=== PATIENT | female | born 1960 | race Hispanic/Latino ===

== ENCOUNTER → 2017-11-11 | Outpatient (CLI) | payer OTHER ==
[~2017-11-11] MED LIST: ADVAIR HFA 115-12 GM; CETIRIZINE HCL10 MG PO; CETRIZINE PO; FUROSEMIDE40 MG PO; GABAPENTIN300 MG PO; GLIPIZIDE ER5 MG PO; HYDROCHLOROTHIA25 MG PO; LANTUS100 UNITS/ SC; LOSARTAN POTAS100 MG PO; METFORMIN HCL500 M1 PO; PANTOPRAZOLE SO40 MG PO; PRAVASTATIN SOD20 MG PO; PRO AIR PO; TAGAMET HB200 MG PO
--- NOTE | 2017-11-11 10:02 | Diagnostic Imaging Report ---
PROCEDURE:ABDOMINAL ULTRASOUND COMPARISON:None. INDICATION:Diffuse Abdomen Pain TECHNIQUE: FINDINGS: Imaged segments of the abdominal aorta and inferior vena cava are of normal caliber. Normal pancreatic head and body. Detail is obscured by bowel gas. Right liver span 14.7 cm. Diffusely increased parenchymal echogenicity with a smooth margin. Portal vein diameter 7 mm; normal flow direction. Cholecystectomy. Common bile duct diameter 3 mm. Right kidney: 11.7 x 4.7 x 4.8 cm. Left kidney: 10.5 x 4.2 x 6.3 cm Both kidneys are normal. Spleen length 12 cm. Coarse central calcification such as a large granuloma or vascular calcification, likely of no clinical consequence. No ascites. CONCLUSION: Normal abdominal ultrasound. Dictated by: Narciso Sweeney M.D. on 11/11/2017 at 10:11 Electronically approved by: Narciso Sweeney M.D. on 11/11/2017 at 10:11
--- NOTE | 2017-11-11 10:05 | Diagnostic Imaging Report ---
PROCEDURE:PELVIC ULTRASOUND COMPARISON:None. INDICATIONS:Diffuse Abdomen Pain TECHNIQUE: Rubi scale color Doppler transabdominal ultrasound pelvis. FINDINGS: The patient is status post hysterectomy. The ovaries are not conspicuous. There is no free fluid rather conspicuous abnormality on survey views. CONCLUSION: Inconspicuous ovaries with hysterectomy. No acute abnormality. Dictated by: Narciso Sweeney M.D. on 11/11/2017 at 10:14 Electronically approved by: Narciso Sweeney M.D. on 11/11/2017 at 10:14
== END ==
LOC: US 07:34
PROVIDERS: ATTEND Internal Medicine Gastroenterology
DX: R10.84 Generalized abdominal pain (principal)
CPT/HCPCS: 76700; 76856

== ENCOUNTER 2018-08-23 19:36 | Emergency (ER) | payer OTHER ==
[~2018-08-23] VITALS: Ht 162.6 cm; Wt 95.3 kg
--- OUTSIDE RECORDS SUMMARY | 2018-08-23 19:39 | XMS REPORT ---
Author Author [facility] Address Unknown Phone Unavailable Care Team Providers Care Secondary Social Studies Teacher Name Role Phone Kirk DESAI Unavailable Unavailable SHAHNAZ LIEBERMAN Unavailable Unavailable FLAVIO COLBY Unavailable Unavailable Problems This patient has no known problems. Allergies, Adverse Reactions, Alerts This patient has no known allergies or adverse reactions. Medications This patient has no known medications. Results Test Description Test Time Test Comments Text Results Atomic Results Result Comments POCT-GLUCOSE METER 2018-08-14 16:17:00 POC-GLUCOSE METER (BEAKER) (test svhh=1115) 85 mg/dL 70-110 TESTED AT [address] [address] POCT-GLUCOSE [id number] 13:03:00* Test Item Value Reference Range Comments POC-GLUCOSE METER (BEAKER) (test ervj=9904) 231 mg/dL 70-110 TESTED AT [address] [address] POCT-GLUCOSE [id number] 09:13:00* Test Item Value Reference Range Comments POC-GLUCOSE METER (BEAKER) (test lyuz=1273) 195 mg/dL 70-110 TESTED AT [address] [address] [id number] 07:19:00* Test Item Value Reference Range Comments PHOSPHORUS (BEAKER) (test fhkc=606) 1.9 mg/dL 2.3-4.7 [id number] 07:19:00* Test Item Value Reference Range Comments MAGNESIUM (BEAKER) (test ulsp=423) 1.7 mg/dL 1.6-2.6 BASIC METABOLIC [id number] 07:19:00* Test Item Value Reference Range Comments SODIUM (BEAKER) (test vlbw=092) 136 meq/L 136-145 POTASSIUM (BEAKER) (test zbwv=848) 3.3 meq/L 3.5-5.1 CHLORIDE (BEAKER) (test xdwx=796) 105 meq/L 98-107 CO2 (BEAKER) (test uich=608) 23 meq/L 22-29 BLOOD UREA NITROGEN (BEAKER) (test syhn=621) 13 mg/dL 7-21 CREATININE (BEAKER) (test ouab=560) 0.84 mg/dL 0.57-1.25 GLUCOSE RANDOM (BEAKER) (test llny=137) 179 mg/dL 70-105 CALCIUM (BEAKER) (test gkro=734) 8.9 mg/dL 8.4-10.2 EGFR (BEAKER) (test zqxy=4859) 70 mL/min/1.73 sq m ESTIMATED GFR IS NOT ACCURATE CREATININE CLEARANCE IN PREDICTING GLOMERULAR FILTRATION RATE. ESTIMATED GFR IS NOT APPLICABLE FOR DIALYSIS PATIENTS. CBC (HEMOGRAM ONLY)2018-08-14 06:31:00* Test Item Value Reference Range Comments WHITE BLOOD CELL COUNT (BEAKER) (test uwjh=754) 9.3 K/ L 3.5-10.5 RED BLOOD CELL COUNT (BEAKER) (test zlwk=488) 4.07 M/ L 3.93-5.22 HEMOGLOBIN (BEAKER) (test zoyj=670) 10.7 GM/DL 11.2-15.7 HEMATOCRIT (BEAKER) (test rcey=250) 32.9 % 34.1-44.9 MEAN CORPUSCULAR VOLUME (BEAKER) (test bwdg=056) 80.8 fL 79.4-94.8 MEAN CORPUSCULAR HEMOGLOBIN (BEAKER) (test aegv=922) 26.3 pg 25.6-32.2 MEAN CORPUSCULAR HEMOGLOBIN CONC (BEAKER) (test kdhm=189) 32.5 GM/DL 32.2-35.5 RED CELL DISTRIBUTION WIDTH (BEAKER) (test mloh=383) 13.8 % 11.7-14.4 PLATELET COUNT (BEAKER) (test wvsu=730) 222 K/CU MM 150-450 MEAN PLATELET VOLUME (BEAKER) (test gqrr=916) 10.7 fL 9.4-12.3 NUCLEATED RED BLOOD CELLS (BEAKER) (test zbgb=044) 0 /100 WBC 0-0 POCT-GLUCOSE [id number] 21:37:00* Test Item Value Reference Range Comments POC-GLUCOSE METER (BEAKER) (test kysr=4386) 223 mg/dL 70-110 TESTED AT [facility] [address] [facility] [address] POCT-GLUCOSE [id number] 16:02:00* Test Item Value Reference Range Comments POC-GLUCOSE METER (BEAKER) (test ygnl=0398) 312 mg/dL 70-110 TESTED AT [facility] [address] [facility] [address] POCT-GLUCOSE [id number] 12:04:00* Test Item Value Reference Range Comments POC-GLUCOSE METER (BEAKER) (test lfbo=9415) 359 mg/dL 70-110 TESTED AT [place] [id number] [facility] [address] POCT-GLUCOSE [id number] 09:00:00* Test Item Value Reference Range Comments POC-GLUCOSE METER (BEAKER) (test iwbl=3435) 279 mg/dL 70-110 TESTED AT [place] [id number] [facility] [address] [id number] 05:00:00* Test Item Value Reference Range Comments PHOSPHORUS (BEAKER) (test sgoq=943) 2.9 mg/dL 2.3-4.7 [id number] 05:00:00* Test Item Value Reference Range Comments MAGNESIUM (BEAKER) (test bmrx=905) 1.7 mg/dL 1.6-2.6 BASIC METABOLIC [id number] 05:00:00* Test Item Value Reference Range Comments SODIUM (BEAKER) (test ocgv=594) 141 meq/L 136-145 POTASSIUM (BEAKER) (test hxsd=056) 3.7 meq/L 3.5-5.1 CHLORIDE (BEAKER) (test qbbb=610) 107 meq/L 98-107 CO2 (BEAKER) (test ybtx=296) 23 meq/L 22-29 BLOOD UREA NITROGEN (BEAKER) (test jjkb=759) 12 mg/dL 7-21 CREATININE (BEAKER) (test kfyt=356) 0.84 mg/dL 0.57-1.25 GLUCOSE RANDOM (BEAKER) (test uemk=118) 245 mg/dL 70-105 CALCIUM (BEAKER) (test ttec=652) 8.5 mg/dL 8.4-10.2 EGFR (BEAKER) (test ffgx=7232) 70 mL/min/1.73 sq m ESTIMATED GFR IS NOT ACCURATE CREATININE CLEARANCE IN PREDICTING GLOMERULAR FILTRATION RATE. ESTIMATED GFR IS NOT APPLICABLE FOR DIALYSIS PATIENTS. CBC (HEMOGRAM ONLY)2018-08-13 04:30:00* Test Item Value Reference Range Comments WHITE BLOOD CELL COUNT (BEAKER) (test yqqa=761) 12.5 K/ L 3.5-10.5 RED BLOOD CELL COUNT (BEAKER) (test vocw=127) 4.94 M/ L 3.93-5.22 HEMOGLOBIN (BEAKER) (test bzop=407) 12.7 GM/DL 11.2-15.7 HEMATOCRIT (BEAKER) (test hzft=377) 39.6 % 34.1-44.9 MEAN CORPUSCULAR VOLUME (BEAKER) (test dsqz=034) 80.2 fL 79.4-94.8 MEAN CORPUSCULAR HEMOGLOBIN (BEAKER) (test wqum=699) 25.7 pg 25.6-32.2 MEAN CORPUSCULAR HEMOGLOBIN CONC (BEAKER) (test sypz=095) 32.1 GM/DL 32.2-35.5 RED CELL DISTRIBUTION WIDTH (BEAKER) (test disf=093) 13.2 % 11.7-14.4 PLATELET COUNT (BEAKER) (test zakh=500) 269 K/CU MM 150-450 MEAN PLATELET VOLUME (BEAKER) (test xxsj=176) 10.6 fL 9.4-12.3 NUCLEATED RED BLOOD CELLS (BEAKER) (test lpbl=752) 0 /100 WBC 0-0 POCT-GLUCOSE [id number] 22:07:00* Test Item Value Reference Range Comments POC-GLUCOSE METER (BEAKER) (test jrzt=5863) 178 mg/dL 70-110 TESTED AT [facility] [address] [facility] [address] POCT-GLUCOSE [id number] 13:34:00* Test Item Value Reference Range Comments POC-GLUCOSE METER (BEAKER) (test aevf=5305) 233 mg/dL 70-110 TESTED AT [facility] [address] [facility] [address] [id number] 12:19:00* Test Item Value Reference Range Comments SODIUM (BEAKER) (test ttfu=233) 144 meq/L 136-145 POTASSIUM (BEAKER) (test onye=099) 3.4 meq/L 3.5-5.1 CHLORIDE (BEAKER) (test pppx=694) 106 meq/L 98-107 CO2 (BEAKER) (test qlrm=621) 28 meq/L 22-29 [id number] 12:19:00* Test Item Value Reference Range Comments GLUCOSE RANDOM (BEAKER) (test uvio=917) 171 mg/dL 70-105 BUN AND [id number] 12:19:00* Test Item Value Reference Range Comments BLOOD UREA NITROGEN (BEAKER) (test hwir=436) 17 mg/dL 7-21 CREATININE (BEAKER) (test qawm=225) 1.09 mg/dL 0.57-1.25 EGFR (BEAKER) (test ritv=6618) 52 mL/min/1.73 sq m ESTIMATED GFR IS NOT ACCURATE CREATININE CLEARANCE IN PREDICTING GLOMERULAR FILTRATION RATE. ESTIMATED GFR IS NOT APPLICABLE FOR DIALYSIS PATIENTS. [id number] 11:43:00* Test Item Value Reference Range Comments HEMOGLOBIN (BEAKER) (test fqkg=302) 12.9 GM/DL 11.2-15.7 TISSUE [id number] 12:31:00Surgical Pathology Report Case: [id number] Authorizing Provider: Deandre Lieberman Collected: 03/25/2018 Chuck Gonzales MD Ordering Location: [facility] Received: 03/25/2018 1527 SERVICES Pathologist: Lisa Campbell MD Specimens: A) - Small Bowel, NOS, bx B) - Stomach, bx C) - Biopsy, Gastroesophageal Junction, GE Junction at 40 r\\o esophagitis REASON FOR ADENDUM: TO ENTER CPT CODES:PB: 70201 x 3, 88260 x 2Addendum electronically signed by Lisa Carroll MD on 05/28/2018 at 12:31 PMA. SMALL BOWEL, BIOPSIES: - INCREASED CHRONIC INFLAMMATORY CELLS IN THE LAMINA PROPRIA B. STOMACH, BIOPSIES: - INTESTINAL METAPLASIA - CHRONIC INACTIVE GASTRITIS C. GE JUNCTION, BIOPSIES: - REFLUX ESOPHAGITIS - REACTIVE CARDITIS Signing Pathologist Direct Phone Line: [phone] signed by Lisa Carroll MD on 03/26/2018 at 3:25 PMGastroesophageal reflux disease with esophagitis, rule out esophagitis A. Small bowel biopsy; B. Stomach biopsy; C. GE junction at 40 cm biopsyThe specimen is received in three containers of formalin all labeled with the patient's information. Part A labeled "small bowel biopsy" consists of two fragments of otero tissue measuring 0.1 and 0.2 cm, submitted A1. Part B labeled "stomach biopsy" consists of multiple fragments of otero tissue ranging from 0.1 to 0.3 cm, submitted B1. Part C labeled "GE junction biopsy of 40 cm" consists of two 0.1 cm fragment of otero tissue, submitted C1.CG/pl A. Biopsies of small bowel have small bowel mucosa with mild increased chronic inflammatory cells in the lamina propria. No decreased villous to crypt ratio, increased intraepit helial lymphocytes, dysplasia or malignancy is seen.B. Stomach biopsies have int estinal metaplasia and increased chronic inflammatory cells in the lamina propri a. No Helicobacter pylori are seen on H&E or Warthin Starry stains. No dysplasia or malignancy is seen.C. GE junction biopsies have gastric cardiac mucosa with scant esophageal squamous epithelium with basal cell hyperplasia and intraepithelial lymphocytes. No fungi, viral cytopathic effect, Contreras's intestinal metaplasia, dysplasia or malignancy is seen.POCT-GLUCOSE METER 2018-03-25 11:01:00* Test Item Value Reference Range Comments POC-GLUCOSE METER (ELLE) (test soti=3601) 152 mg/dL 70-110 TESTED AT [facility] [address] [facility] [address] US ABDOMEN COMPLETE [place] [address] Patient Name: MISTY HOU MR #: [id number] : 1960 Age/Sex: 57/F Req #: [id number] Adm Physician: Ordered by: FLAVIO COLBY MD Report #: [id number] Location: US Room/Bed: Procedure: [id number] US/US ABDOMEN COMPLETE Exam D ate: Exam Time: REPORT STATUS: Signed PROC EDURE: ABDOMINAL ULTRASOUND COMPARISON: None. INDICATION: Diffuse Abdo men Pain TECHNIQUE: FINDINGS: Imaged segments of the abdominal a steffen and inferior vena cava are of normal caliber. Normal pancreatic he ad and body. Detail is obscured by bowel gas. Right liver span 14.7 cm. Di ffusely increased parenchymal echogenicity with a smooth margin. Portal vein diameter 7 mm; normal flow direction. Cholecystectomy. Common bile duct di ameter 3 mm. Right kidney: 11.7 x 4.7 x 4.8 cm. Left kidney: 10.5 x 4.2 x 6.3 cm Both kidneys are normal. Spleen length 12 cm. Coarse central ca lcification such as a large granuloma or vascular calcification, likely of no clinical consequence. No ascites. CONCLUSION: Normal abdominal ultrasound. Dictated by: Janessa Sweeney M.D. on 018 at 10:11 Electronically approved by: Janessa Sweeney M.D. on 10/27 at 10:11 Dictated By: JANESSA SWEENEY MD 1011 Transcribed By: CHERYLE on 11/11/17 1011 COPY TO: FLAVIO COLBY MD US PELVIS COMPLETE NON OB [place] [address] Patient Name: MISTY HOU MR #: [id number] : 1960 Age/Sex: 57/F Req #: [id number] Adm Physician: Ordered by: FLAVIO COLBY MD Report #: [id number] Location: US Room/Bed: Procedure: [id number] US/US PELVIS COMPLETE NON OB Exam Date: Exam Time: REPORT STATUS: Signed PROCEDURE: PELVIC ULTRASOUND COMPARISON: None. INDICATIONS: Diffuse Abdomen Pain TECHNIQUE: Rubi scale color Doppler transabdominal ultrasound pelvis. FINDINGS: The patient is status post hysterectomy. The ovaries are not conspicuous. There is no free fluid rather conspicuous abnorm ality on survey views. CONCLUSION: Inconspicuous ovaries with hystere ctomy. No acute abnormality. Dictated by: Janessa Sweeney M.D. on 11/11/2017 at 10:14 Electronically approved by: Janessa Sweeney M.D. on 11/11/2017 at 10:14 Dictated By: JANESSA SWEENEY MD Electro nically Signed By: JANESSA SWEENEY MD on 11/11/17 1014 Transcribed By: CHERYLE on 11/11/17 1014 COPY TO: FLAVIO COLBY MD
--- OUTSIDE RECORDS SUMMARY | 2018-08-23 19:39 | XMS REPORT | Clinical Summary ---
Author Author [employer] [facility] [employer] 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 Active insulin glargine Inject 58 0 (BASAGLAR KWIKPEN) 100 Units unit/mL (3 mL) InPn subcutaneousl y nightly . Active cholecalciferol, vitamin Take 3,000 0 D3, 3,000 unit Tab Units by mouth daily. Active empagliflozin (JARDIANCE) Take 10 mg by 0 10 mg tablet mouth daily. Active loratadine (CLARITIN) 10 Take 10 mg by 0 mg tablet mouth daily. Active metoprolol (LOPRESSOR) 25 Take 25 mg by 0 MG tablet mouth 2 (two) times daily. Active insulin aspart (NOVOLOG) Inject 15 0 100 unit/mL InPn Units subcutaneousl y 3 (three) times daily before meals . Active peg 400-propylene glycol, Place 1 drop 0 PF, (SYSTANE, PF,) inside cheek 0.4-0.3 % Dpet as needed . Active pravastatin (PRAVACHOL) Take 20 mg by 0 20 MG tablet mouth daily. Active albuterol HFA (VENTOLIN Inhale 1 puff 0 HFA) 90 mcg/actuation by mouth via inhaler inhaler every 6 (six) hours as needed for Wheezing. Active lactobacillus rhamnosus, Take 1 0 GG, (CULTURELLE) 10 capsule by billion cell capsule mouth daily. Active pantoprazole (PROTONIX) Take 40 mg by 0 40 MG tablet mouth daily. Active pregabalin (LYRICA) 75 MG Take 75 mg by 0 capsule mouth 2 (two) times daily. Active furosemide (LASIX) 20 MG Take 20 mg by 0 tablet mouth daily. Active vitamin Take 1 tablet 0 w/vgikuek-dvof-jtyexs by mouth ( PLUS) 27 mg daily. iron- 1 mg Tab 08/24/2018 Active traMADol (ULTRAM) 50 mg Take 1 tablet 30 tablet 0 tablet (50 mg total) 8 by mouth every 6 (six) hours as needed for Pain for up to 10 days. Max Daily Amount: 200 mg 08/24/2018 Active docusate sodium (COLACE) Take 1 30 capsule 0 100 MG capsule capsule (100 8 mg total) by mouth daily as needed for up to 10 days. 12/22/2017 Discontinued fluticasone (FLONASE) 50 1 spray by 0 mcg/actuation nasal spray Nasal route daily. 12/22/2017 Discontinued furosemide (LASIX) 20 MG Take 20 mg by 0 tablet mouth 2 (two) times daily. 07/13/2018 Discontinued gabapentin (NEURONTIN) Take 300 mg 0 300 MG capsule by mouth daily . 07/13/2018 Discontinued garlic 300 mg Cap Take 1 0 capsule by mouth daily . 12/22/2017 Discontinued glipiZIDE (GLUCOTROL) 10 Take 10 mg by 0 MG tablet mouth 2 (two) times daily before meals. 12/22/2017 Discontinued SITagliptin (JANUVIA) 100 Take 100 mg 0 MG tablet by mouth daily. 03/25/2018 Discontinued pantoprazole (PROTONIX) Take 40 mg by 0 40 MG tablet mouth daily. 07/13/2018 Discontinued dextromethorphan-guaifene Take 5 mLs by 0 sin (ROBITUSSIN-DM) mouth every 6 10-100 mg/5 mL liquid (six) hours as needed. 07/13/2018 Discontinued cephalexin (KEFLEX) 500 Take 500 mg 0 MG capsule by mouth 3 (three) times daily. Active Problems Problem Noted Date Hiatal hernia 08/12/2018 Encounters Care Team Description Date Type Specialty Gerardo Angelo MD ROBOTIC LAPAROSCOPY,HERNIORRHAPHY HIATAL 08/12/2018 Surgery Gerardo Angelo MD 08/12/2018 Hospital General Internal Medicine - Encounter 08/14/2018 Primitivo Andersen MD 08/11/2018 Anesthesia Event Gerardo Angelo MD 08/06/2018 Hospital Pre-Admission Testing Encounter Mejia Hassan MD 07/28/2018 Anesthesia Event Gerardo Angelo MD 07/13/2018 Hospital Pre-Admission Testing Encounter Gerardo Angelo MD Left without seen 05/18/2018 Office Visit Nutrition Gerardo Angelo MD Gastroesophageal reflux disease, esophagitis presence not specified (Primary Dx); Morbid obesity (HCC) 05/15/2018 Outside Orders Central Scheduling Deandre Arriaga MD UPPER ENDOSCOPY 03/25/2018 Surgery Deandre Arriaga MD 03/25/2018 Hospital Encounter Francois Rubalcava MD 03/25/2018 Anesthesia Event 03/18/2018 Hospital Pre-Admission Testing Encounter Deandre Arriaga MD REMOVAL,24HR PH PROBE 12/23/2017 Surgery Gastroenterology Deandre Arriaga MD 12/23/2017 Hospital Gastroenterology Encounter Deandre Arriaga MD TEST,MONITORING 24 HR PH 12/22/2017 Surgery Gastroenterology Deandre Arriaga MD 12/22/2017 Hospital Gastroenterology Encounter after 08/22/2017 Immunizations Name Dates Previously Given Next Due Influenza Four-QIV Non-PF 08/14/2018 5+ YR Social History Date Tobacco Use Types Packs/Day Years Used Never Smoker Smokeless Tobacco: Never Used Alcohol Use Drinks/Week oz/Week Comments No Sex Assigned at Date Recorded Not on file Industry Job Start Date Occupation Not on file Not on file Not on file Travel End Travel History Travel Start No recent travel history available. Last Filed Vital Signs Time Taken Vital Sign Reading 08/14/2018 7:00 PM CDT Blood Pressure 118/56 08/14/2018 7:00 PM CDT Pulse 77 08/14/2018 7:00 PM CDT Temperature 35.9 C (96.6 F) 08/14/2018 7:00 PM CDT Respiratory Rate 18 08/14/2018 7:00 PM CDT Oxygen Saturation 93% 08/14/2018 5:51 AM CDT Inhaled Oxygen 2% Concentration 08/12/2018 11:02 AM CDT Weight 95.4 kg (210 lb 4.8 oz) 08/12/2018 11:02 AM CDT Height 162.6 cm (5' 4.02") 08/12/2018 11:02 AM CDT Body Mass Index 36.08 Plan of Treatment Health Maintenance Due Date Last Done Comments INFLUENZA VACCINE Completed 08/14/2018 Implants Device Identifier Shelf Expiration Date Model / Serial / Lot Implanted Type 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 03/26/2021 [id number] / / [id number] [employer] Pur - Graft/Patc N/A: Abdomen WL GORE & [id number] ASSC:MED Implanted: Qty: 1 on 08/12/2018 by PRDT Gerardo Angelo MD 05/23/2020 [id number] / / [id number] Phasix 4x6in Rect [id number] - Mesh N/A: Abdomen CR [id number] BARD:DAVOL Implanted: Qty: 1 on 08/12/2018 by Gerardo Angelo MD Procedures Comments Procedure Name Priority Date/Time Associated Diagnosis RHYTHM STRIP - SCAN 08/18/2018 8:40 AM CDT POCT-GLUCOSE METER Routine 08/14/2018 3:32 PM CDT POCT-GLUCOSE METER Routine 08/14/2018 12:37 PM CDT POCT-GLUCOSE METER Routine 08/14/2018 8:56 AM CDT CBC (HEMOGRAM ONLY) Routine 08/14/2018 5:51 AM CDT PHOSPHORUS Routine 08/14/2018 5:51 AM CDT MAGNESIUM Routine 08/14/2018 5:51 AM CDT BASIC METABOLIC PANEL (7) Routine 08/14/2018 5:51 AM CDT POCT-GLUCOSE METER Routine 08/13/2018 9:34 PM CDT TRANSFUSION SERVICE 08/13/2018 REPORT - SCAN 6:02 PM CDT POCT-GLUCOSE METER Routine 08/13/2018 4:00 PM CDT POCT-GLUCOSE METER Routine 08/13/2018 12:01 PM CDT POCT-GLUCOSE METER Routine 08/13/2018 8:13 AM CDT CBC (HEMOGRAM ONLY) Routine 08/13/2018 3:48 AM CDT PHOSPHORUS Routine 08/13/2018 3:48 AM CDT MAGNESIUM Routine 08/13/2018 3:48 AM CDT BASIC METABOLIC PANEL (7) Routine 08/13/2018 3:48 AM CDT POCT-GLUCOSE METER Routine 08/12/2018 10:05 PM CDT PROCEDURE W/ DAVINCI XI 08/12/2018 Gastroesophageal reflux 4:22 PM CDT disease, esophagitis presence not specified Hiatal hernia Case Notes 2.5 HRS PER YANETH OKAYED BY CLAUDIA 08/04 @ 12:56 Special Needs (NEED ENDO EQUIP, DAVINCI - XI NOT REQUESTED) UPPER ENDOSCOPY 08/12/2018 Gastroesophageal reflux 4:22 PM CDT disease, esophagitis presence not specified Hiatal hernia Case Notes 2.5 HRS PER YANETH OKAYED BY CLAUDIA 08/04 @ 12:56 Special Needs (NEED ENDO EQUIP, DAVINCI - XI NOT REQUESTED) GASTRECTOMY,PARTIAL W/ 08/12/2018 Gastroesophageal reflux YASMEEN-EN-Y AND 4:22 PM CDT disease, esophagitis GASTROJEJUNOSTOMY presence not specified Hiatal hernia Case Notes 2.5 HRS PER YANETH OKAYED BY CLAUDIA 08/04 @ 12:56 Special Needs (NEED ENDO EQUIP, DAVINCI - XI NOT REQUESTED) ROBOTIC 08/12/2018 Gastroesophageal reflux LAPAROSCOPY,HERNIORRHAPHY 4:22 PM CDT disease, esophagitis HIATAL presence not specified Hiatal hernia Case Notes 2.5 HRS PER YANETH OKAYED BY CLAUDIA 08/04 @ 12:56 Special Needs (NEED ENDO EQUIP, DAVINCI - XI NOT REQUESTED) POCT-GLUCOSE METER Routine 08/12/2018 1:30 PM CDT TYPE AND SCREEN, Routine 08/12/2018 AUTOMATED 1:24 PM CDT GLUCOSE Routine 07/13/2018 11:15 AM CDT BUN AND CREATININE Routine 07/13/2018 11:15 AM CDT ELECTROLYTE PANEL Routine 07/13/2018 11:15 AM CDT HEMOGLOBIN Routine 07/13/2018 11:15 AM CDT REPORT OF PROCEDURE - 03/25/2018 ENDOSCOPY URL 11:55 AM CDT TISSUE EXAM AP Routine 03/25/2018 11:24 AM CDT POCT-GLUCOSE METER Routine 03/25/2018 10:59 AM CDT UPPER ENDOSCOPY,BIOPSY 03/25/2018 Gastroesophageal reflux 10:00 AM CDT disease with esophagitis ENDOSCOPY,CAPSULE PH 03/25/2018 Gastroesophageal reflux MONITORING 10:00 AM CDT disease with esophagitis UPPER ENDOSCOPY 03/25/2018 Gastroesophageal reflux 10:00 AM CDT disease with esophagitis MOTILITY 12/22/2017 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 after 08/22/2017 Results * RHYTHM STRIP - SCAN (08/18/2018 8:40 AM CDT) Narrative Performed At * POC-Glucose meter (08/14/2018 3:32 PM CDT) Only the most recent of 10 results within the time period is included. POC-Glucose Meter 85Comment: TESTED AT [facility] 70 - 110 mg/dL [facility] [address] [facility] [address] [facility] Specimen Blood Performing Organization Address City/State/Zipcode Phone Number [facility] [address] [place] [address] [facility] * CBC (Hemogram only) (08/14/2018 5:51 AM CDT) Only the most recent of 2 results within the time period is included. WBC 9.3 3.5 - 10.5 K/L [facility] RBC 4.07 3.93 - 5.22 M/L [facility] Hemoglobin 10.7 (L) 11.2 - 15.7 GM/DL [facility] Hematocrit 32.9 (L) 34.1 - 44.9 % [facility] MCV 80.8 79.4 - 94.8 fL [facility] MCH 26.3 25.6 - 32.2 pg [facility] MCHC 32.5 32.2 - 35.5 GM/DL [facility] RDW 13.8 11.7 - 14.4 % [facility] Platelets 222 150 - 450 K/CU MM [facility] MPV 10.7 9.4 - 12.3 fL [facility] nRBC 0 0 - 0 /100 WBC [facility] Specimen Blood Performing Organization Address City/[facility]/Zipcode Phone Number [address] [address] [facility] * Phosphorus (08/14/2018 5:51 AM CDT) Only the most recent of 2 results within the time period is included. Phosphorus 1.9 (L) 2.3 - 4.7 mg/dL [facility] Specimen Blood Performing Organization Address City/[facility]/Zipcode Phone Number [place] [phone] [place] [address] [facility] * Magnesium (08/14/2018 5:51 AM CDT) Only the most recent of 2 results within the time period is included. Magnesium 1.7 1.6 - 2.6 mg/dL [facility] Specimen Blood Performing Organization Address City/[facility] Phone Number [facility] [address] [place] [address] [facility] * Basic Metabolic Panel (08/14/2018 5:51 AM CDT) Only the most recent of 2 results within the time period is included. Sodium 136 136 - 145 meq/L [facility] Potassium 3.3 (L) 3.5 - 5.1 meq/L [facility] Chloride 105 98 - 107 meq/L [facility] CO2 23 22 - 29 meq/L [facility] BUN 13 7 - 21 mg/dL [facility] Creatinine 0.84 0.57 - 1.25 mg/dL [facility] Glucose 179 (H) 70 - 105 mg/dL [facility] Calcium 8.9 8.4 - 10.2 mg/dL [facility] EGFR 70Comment: ESTIMATED GFR IS mL/min/1.73 sq m [facility] NOT ACCURATE CREATININE [facility] CLEARANCE IN PREDICTING GLOMERULAR FILTRATION RATE. ESTIMATED GFR IS NOT APPLICABLE FOR DIALYSIS PATIENTS. Specimen Blood Performing Organization Address City/[facility] Phone Number [facility] [address] [place] [address] [facility] * TRANSFUSION SERVICE REPORT - SCAN (08/13/2018 6:02 PM CDT) Narrative Performed At * Type and screen, automated (08/12/2018 1:24 PM CDT) ABO/RH AUTOMATED (BEAKER) O POSITIVE [facility] Ab Scrn NEGATIVE [facility] Specimen Blood Performing Organization Address City/[facility]/Zipcode Phone Number [address] [address] [phone] * BUN and Creatinine (07/13/2018 11:15 AM CDT) BUN 17 7 - 21 mg/dL [facility] Creatinine 1.09 0.57 - 1.25 mg/dL [facility] EGFR 52Comment: ESTIMATED GFR IS mL/min/1.73 sq m [facility] NOT ACCURATE CREATININE [facility] CLEARANCE IN PREDICTING GLOMERULAR FILTRATION RATE. ESTIMATED GFR IS NOT APPLICABLE FOR DIALYSIS PATIENTS. Specimen Blood Performing Organization Address City/[facility] Phone Number [address] * Hemoglobin (07/13/2018 11:15 AM CDT) Hemoglobin 12.9 11.2 - 15.7 GM/DL [facility] Specimen Blood Performing Organization Address City/[facility] Phone Number [address] [address] [phone] [place] [address] * Glucose (07/13/2018 11:15 AM CDT) Glucose 171 (H) 70 - 105 mg/dL [facility] Specimen Blood Performing Organization Address City/[facility] Phone Number [address] [address] [phone] [place] [address] * Electrolytes (07/13/2018 11:15 AM CDT) Sodium 144 136 - 145 meq/L [facility] Potassium 3.4 (L) 3.5 - 5.1 meq/L [facility] Chloride 106 98 - 107 meq/L [facility] CO2 28 22 - 29 meq/L [facility] Specimen Blood Performing Organization Address City/[facility] Phone Number [address] [address] [phone] [address] * REPORT OF PROCEDURE - ENDOSCOPY URL (03/25/2018 11:55 AM CDT) Narrative Performed At * Tissue Exam (03/25/2018 11:24 AM CDT) Case Report Surgical Pathology [facility] Report [facility] Case: [id number] Authorizing Provider:Deandre Arriaga Collected: 03/25/2018 Chuck Gonzales MD Ordering Location: [facility] ENDOSCOPY Received: 03/25/2018 1527 SERVICES Pathologist: Lisa Carroll MD Specimens: A) - Small Bowel, NOS, bx B) - Stomach, bx C) - Biopsy, Gastroesophageal Junction, GE Junction at 40 r\\o esophagitis ADDENDUM REASON FOR ADENDUM: TO ENTER [facility] CPT CODES: [facility] PB: 25399 x 3, 24222 x 2 DIAGNOSIS A. SMALL BOWEL, BIOPSIES: [facility] - INCREASED CHRONIC [facility] INFLAMMATORY CELLS IN THE LAMINA PROPRIA B. STOMACH, BIOPSIES: - INTESTINAL METAPLASIA - CHRONIC INACTIVE GASTRITIS C. GE JUNCTION, BIOPSIES: - REFLUX ESOPHAGITIS - REACTIVE CARDITIS Signing Pathologist Direct Phone Line: [phone] CLINICAL HISTORY Gastroesophageal reflux [facility] disease with esophagitis, rule [facility] out esophagitis SPECIMEN SOURCE A. Small bowel biopsy; B. [facility] Stomach biopsy; C. GE junction [facility] at 40 cm biopsy GROSS DESCRIPTION The specimen is received in [facility] three containers of formalin [facility] all labeled with the patient's information. Part [...] cm fragment of otero tissue, submitted C1.CG/pl MICROSCOPIC DESCRIPTION A. Biopsies of small bowel [facility] have small bowel mucosa with [facility] mild increased chronic inflammatory cells in the lamina propria. No decreased villous to crypt ratio, increased intraepithelial lymphocytes, dysplasia or malignancy is seen. B. Stomach biopsies have intestinal metaplasia and increased chronic inflammatory cells in the lamina propria. No Helicobacter pylori are seen on H&E or Warthin Starry stains. No dysplasia or malignancy is seen. C. GE junction biopsies have gastric cardiac mucosa with scant esophageal squamous epithelium with basal cell hyperplasia and intraepithelial lymphocytes. No fungi, viral cytopathic effect, Contreras's intestinal metaplasia, dysplasia or malignancy is seen. Specimen Tissue - Small Bowel, NOS Performing Organization Address City/State/Zipcode Phone Number [facility] [address] [place], [place] [id number] [facility] after 08/22/2017 Insurance Payer Benefit Subscriber ID Type Phone Address Plan / Group [employer] xxxxxxxxxx siXisPLAC E EXCHANGE Advance Directives For more information, please contact: [address] [phone] Date Inactivated Comments Code Status Date Activated 08/14/2018 10:13 PM Full Code 08/12/2018 12:55 PM This code status was determined by: Patient
--- OUTSIDE RECORDS SUMMARY | 2018-08-23 19:39 | XMS REPORT | Continuity of Care Document ---
Author Author [facility] Interface Address Unknown Phone Unavailable Problems Problem Status Onset Date Classification Date Reported Comments Source R10.9 - UNSPECIFIED ABDOMINAL PAIN Active 06/04/2017 [facility] Active 07/20/2012 [facility] Medications Medication Details Route Status Patient Instructions Ordering Provider Order Date Source [place] 5/325 oral tablet 1-2 tab, PO, Q4-6H, PRN, 9 tab, Pain, Substitution Allowed, Maintenance PO Active Walker 07/20/2012 [facility] Flexeril 10 mg oral tablet 10 mg, 1 tab, PO, TID, PRN, 12 tab, for spasm, Substitution Allowed, TAB PO Active Walker 07/20/2012 [facility] acetaminophen-hydrocodone 325 mg-5 mg oral tablet 1 tab, Route: PO, Drug Form: TAB, Dosing Weight 95.455, kg, ONCE, Start date: 07/20/12 10:45:00, Stop date: 07/20/12 10:45:00 PO No Longer Active Walker 07/20/2012 [facility] Allergies, Adverse Reactions, Alerts Substance Category Reaction Severity Reaction type Status Date Reported Comments Source codeine drug allergy Allergy Active [facility] Immunizations Immunization Date Given Site Status Last Updated Comments Source Results Order Name Results Value Reference Range Date Interpretation Comments Source Upper GI series DX Upper GI series DX Clinical Indication: - abd pain; Comparison: None TECHNIQUE: Patient ingested gas-producing crystals followed by Barium contrast under fluoroscopic observation with spot images obtained and saved medical record. Fluoroscopic images were saved with the patient in various upright, supine, and prone positions. Fluoroscopy time 2.6 minutes. FINDINGS: No aspiration was seen. There is normal esophageal motility without stricture or mass. No gastroesophageal reflux is noted. Evaluation of the stomach shows normal mucosal folds without evidence of mass or ulceration. Normal passage into the duodenum was noted. IMPRESSION: Normal upper GI study. 06/06/2017 - - Read by: Narciso Valdes MD Dictated Date/time: 06/06/17 09:31 Electronically Signed by: Narciso Valdes MD 06/06/17 09:33 FINAL REPORT [facility] Vital Signs Vital Sign Value Date Comments Source Height 157.48 cm 07/20/2012 [facility] Weight 95.455 07/20/2012 [facility] Encounters Location Location Details Encounter Type Encounter Number Reason For Visit Attending Provider ADM Date DC Date Status Source [facility] Emergency [id number] ALANA DAHLBALL 07/20/2012 07/20/2012 Active [facility] [place] [facility] [id number] Rigo Valladares 06/06/2017 06/07/2017 [facility] [place] Procedures Procedure Code Date Perfomer Comments Source
--- OUTSIDE RECORDS SUMMARY | 2018-08-23 19:39 | XMS REPORT | Summary of Care ---
Author Author [facility] Organization [facility] Address Unknown Phone Unavailable Encounter HQ Encntr_alias(FIN) [id number] Date(s): 06/06/17 - 06/06/17 [facility] [address] [place] [phone] Discharge Disposition: Home or Self Care Attending Physician: Rigo Valladares I DO Vital Signs No data available for this section Problem List No data available for this section Allergies, Adverse Reactions, Alerts Substance Reaction Severity Status codeine Active Medications No data available for this section Results No data available for this section Immunizations No data available for this section Procedures No data available for this section Social History No data available for this section Assessment and Plan No data available for this section
--- NOTE | 2018-08-23 22:31 | Diagnostic Imaging Report ---
ABDOMEN ACUTE SERIES W/PA CXR Clinical history: ^ABD PAIN, UNABLE TO HAVE BM FOR ONE WEEK ^[id number] ^2119 ^Y Technique: AP view abdomen, supine and upright, frontal view of the chest Comparison: None Findings: Abdomen: Clips and bowel suture overlie the upper abdomen. Right upper quadrant linear lucency, likely pneumobilia. Prominent loop of small bowel quadrant with gas otherwise seen in nondilated small and large bowel. Chest: Normal cardiomediastinal silhouette. No consolidation. Trace left pleural effusion versus thickening. Impression: Nonspecific focally dilated small bowel loop in the left upper quadrant (region of surgical suture) with otherwise nonobstructive bowel gas pattern. Signed by: Dr Abi Willoughby MD on 08/23/2018 10:28 PM
[2018-08-23 22:51] VITALS: BP 138/62
== END 2018-08-23 23:18 | disposition home or self-care (01) ==
LOC: EDBD 19:36 → ER 19:36
DX: R10.30 Lower abdominal pain, unspecified (principal); K59.00 Constipation, unspecified; I10 Essential (primary) hypertension; E11.9 Type 2 diabetes mellitus without complications; K21.9 Gastro-esophageal reflux disease without esophagitis
CPT/HCPCS: 74022; 99283